=== PATIENT | male | born 1960 | race American Indian/Alaskan Native ===

== ENCOUNTER 2022-12-16 08:10 | Day surgery (SDC) | payer OTHER ==
[2022-12-15 17:42] VITALS: BP 121/75
[~2022-12-16] VITALS: Ht 167.6 cm; Wt 94.8 kg
[~2022-12-16 08:10] MED LIST: NAPROXEN500 MG PO; NORCO 5-325 TA1 EACH PO; NORVASC10 MG PO; TRIAMTERENE-HC1 EAC3 PO; VESICARE10 MG PO; VITAMIN D350 MCG PO
[2022-12-16 08:43] VITALS: BP 107/64
--- NOTE | 2022-12-16 10:47 | NUR ---
12/16/22 Radha7 Corie Khalil 1039 PT ARRIVED TO PACU ASLEEP. SAO2 MAINTAINING >95% ON 3 L O2.
[2022-12-16 11:13] VITALS: BP 108/77
--- NOTE | 2022-12-17 08:32 | OR ---
[facility] [address] [place], [place] [address] Signed DATE OF OPERATION: 12/16/2022 SURGEON: Alin Helm MD PREOPERATIVE DIAGNOSES: 1. Personal history of colonic polyps in 2010 at the age of 50. 2. Moderate right and left-sided diverticulosis. 3. Small internal hemorrhoids. POSTOPERATIVE DIAGNOSES: 1. 5 mm polyp at 70 cm in proximal transverse colon. 2. 4 mm polyp at 85 cm in proximal transverse colon. 3. Moderate right and left-sided diverticulosis. 4. Minimal internal hemorrhoids. PROCEDURE: Colonoscopy with hot biopsy. ESTIMATED BLOOD LOSS: None. INDICATIONS: Dillon is a 62-year-old gentleman, asked to see me for a followup colonoscopy. He said he has no lower GI complaints. There is no family history of colon cancer or polyps. I helped him with a colonoscopy in 2010 at the age of 50. At that time, he had right and left-sided diverticulosis. He had a small 4 mm adenomatous polyp removed. He has some small internal hemorrhoids. In the office, I gave him a pamphlet on colonoscopy. We had reviewed the nature of the test. There is risk including, but not limited to gas bloating, crampy abdominal pain, bleeding, perforation requiring surgery, and missed diagnosis. We also reviewed the need for IV conscious sedation. He had done well with Versed and fentanyl in the past. He had expressed understanding and wished to proceed. PROCEDURE NOTE: Dillon was taken into our endoscopy suite and placed in the left lateral decubitus position. He was given preoperative Ancef due to his left hip replacement. He was given 7 mg of Versed and 125 mcg of fentanyl to cover the case. A digital rectal exam was performed and this revealed no external hemorrhoids. He had moderate sphincter tone. There were no masses. His prostate is swollen and indurated bilaterally. The adult colonoscope was introduced and advanced under direct visualization of the camera. He has a relatively short colon and we got into the cecum fairly quickly. His prep was Electronically Signed By: ALIN HELM MD 12/17/22 0832 PATIENT NAME: DILLON ESCALANTE OPERATIVE REPORT DATE OF : 58 REPORT #: [id number] PHYSICIAN: ALIN HELM MD PCP: TRISTEN BREWER MD REPORT IS CONFIDENTIAL AND NOT TO BE RELEASED WITHOUT AUTHORIZATION [address] [address] Signed quite good as always. We could easily see the appendiceal orifice and the ileocecal valve. We had taken pictures throughout for photodocumentation. The scope was slowly withdrawn. He indeed has moderate-sized diverticula in the right and sigmoid colon. He had a couple of polyps in the transverse colon easily removed with the help of hot biopsy forceps. In the rectum, the scope had been retroflexed and he does have minimal internal hemorrhoid tissue. After this, the gas was suctioned out and the colonoscope removed. Dillon tolerated the procedure quite well. RECOMMENDATIONS: I will see Dillon in my office in 7 to 14 days to review his results. I suspect he will stay on the five year plan. Alin Helm MD ALB/MODL /[id number] cc: Alin Helm MD [facility] Copies: ALIN HELM MD ~ Electronically Signed By: ALIN HELM MD 12/17/22 0832 PATIENT NAME: DILLON ESCALANTE OPERATIVE REPORT DATE OF : 58 REPORT #: [id number] PHYSICIAN: ALIN HELM MD PCP: TRISTEN BREWER MD REPORT IS CONFIDENTIAL AND NOT TO BE RELEASED WITHOUT AUTHORIZATION
--- NOTE | 2022-12-22 15:33 | PATH ---
[facility] [address] [place], [place] [address] Signed SPECIMEN(S): A PROXIMAL TRANSVERSE POLYP AT 70 CM SPECIMEN(S): B TRANSVERSE COLON POLYP SPECIMEN SOURCE: A. PROXIMAL TRANSVERSE POLYP AT 70 CM B. TRANSVERSE COLON POLYP CLINICAL HISTORY: Colonoscopy. Personal history of colon polyps, rossi diverticuli. Post: Polyps, diverticuli, internal hemorrhoids. FINAL PATHOLOGIC DIAGNOSIS: A. Proximal transverse polyp at 70 cm: - Tubular adenoma (one fragment). B. Transverse colon polyp: - Hyperplastic polyp (one fragment). JVR:[facility] MICROSCOPIC EXAMINATION: Histologic sections of all submitted blocks are examined by light microscopy. These findings, together with the gross examination, support the pathologic diagnosis. GROSS DESCRIPTION: A. The specimen, labeled and designated "Kleber, V, colon, transverse proximal polypectomy at 70 cm," is received in formalin and consists of one fabian, soft tissue fragment measuring 0.2 x 0.4 cm and is submitted entirely in (A1). B. The specimen, labeled and designated "Kleber, V, colon, transverse polypectomy," is received in formalin and consists of one fabian, soft tissue fragment measuring 0.2 x 0.3 cm and is submitted entirely in (B1). MMA (under the direct supervision of a pathologist) The Gross Description was prepared using a voice recognition system. The report was reviewed for accuracy; however, sound-alike word errors, addition and/or deletions may occur. If there is any question about this report, please contact Client Services. PERFORMING LABORATORY: Technical component was performed by [facility], [address] [place] [id number] (CLIA# [id number]). PATIENT NAME: DILLON ESCALANTE PATHOLOGY DATE OF : 58 REPORT #: [id number] PHYSICIAN: [facility] PCP: TRISTEN BREWER MD REPORT IS CONFIDENTIAL AND NOT TO BE RELEASED WITHOUT AUTHORIZATION [facility] [address] [place], [place] [address] Signed Professional interpretation was performed by [facility] [address] [address] (CLIA#: [id number]). Diagnostician: Ronald Laboy MD Pathologist Electronically Signed 12/22/2022 Copies: ~ PATIENT NAME: DILLON ESCALANTE PATHOLOGY DATE OF : 58 REPORT #: [id number] PHYSICIAN: [facility] PCP: TRISTEN BREWER MD REPORT IS CONFIDENTIAL AND NOT TO BE RELEASED WITHOUT AUTHORIZATION
== END 2022-12-16 11:30 | disposition home or self-care (01) ==
LOC: DS 08:10 → OPS 08:10 → DS 10:15 → OPS 10:15
PROVIDERS: ATTEND Colon & Rectal Surgery
PROC: 0DBL8ZX Excision of Transverse Colon, Via Natural or Artificial Opening Endoscopic, Diagnostic (ICD-10-PCS; principal; 2022-12-16 10:15)
DX: D12.3 Benign neoplasm of transverse colon (principal); K57.30 Diverticulosis of large intestine without perforation or abscess without bleeding; K64.8 Other hemorrhoids; M19.90 Unspecified osteoarthritis, unspecified site; I10 Essential (primary) hypertension; Z86.010 Personal history of colon polyps
CPT/HCPCS: 88305; 99153; G0500; J0690; J2250; J3010; J7121

== ENCOUNTER 2024-06-13 14:49 | Observation (INO) | payer OTHER ==
[~2024-06-13] VITALS: Ht 167.6 cm; Wt 97.4 kg
--- NOTE | ~2024-06-13 | CONS ---
[facility] [address] [place], [place] [address] Draft DATE OF CONSULTATION: 06/13/2024 CHIEF COMPLAINT: Abdominal pain. HISTORY OF PRESENT ILLNESS: Dillon is a 63-year-old obese gentleman who for at least a couple of days actually was complaining of upper abdominal pain, anorexia, nausea, and an elevated heart rate. He had gone to his primary care provider. He was sent to the local emergency room mainly for his tachycardia apparently. On exam, there was some concern about upper abdominal pain, but tonight he says a small right lower quadrant abdominal pain. The CT scan showed an inflamed thickened appendix at 13 mm with periappendiceal inflammation. He was given Rocephin and Flagyl. I was asked to admit him as a general surgeon on-call. He is here tonight with his . PAST MEDICAL HISTORY: 1. Hypertension. 2. Obesity. PAST SURGICAL HISTORY: 1. Bilateral total hip replacements. 2. Colonoscopy. SOCIAL HISTORY: He smokes a little along with marijuana and occasional alcohol. 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 His significant other is Chantell at [phone]. Dr. Tristen Brewer is his primary care provider at the [facility]. FAMILY HISTORY: A sister had an NM and his other sister drank herself to . REVIEW OF SYSTEMS: He had 10 systems reviewed and he did remind me that I helped him with a colonoscopy in the past. Of course, I recognized him and his . ALLERGIES: None. MEDICATIONS: 1. Vitamin D. 2. Amlodipine 10 mg p.o. daily. 3. Triamterene/hydrochlorothiazide (37.5/25 mg one p.o. daily). PATIENT NAME: DILLON ESCALANTE CONSULTATION DATE OF : 58 REPORT #: [id number] PHYSICIAN: ALIN CHOI MD PCP: TRISTEN BREWER MD REPORT IS CONFIDENTIAL AND NOT TO BE RELEASED WITHOUT AUTHORIZATION [facility] [address] [place], [place] [address] Draft PHYSICAL EXAMINATION: VITAL SIGNS: Blood pressure 113/84, his heart rate is 98, respiratory rate 19, temperature is 98.6. He is 99% on room air. He is 5 feet 6 inches tall at 97 kg with a body mass index of 34 exam. GENERAL: Dillon is a 63-year-old gentleman, lying supine in his hospital bed, watching TV. His is at the bedside along with our nurse. He is in no acute distress. LUNGS: Clear to auscultation bilaterally. HEART: Regular rate and rhythm without murmurs. ABDOMEN: Obese, soft, but tender in the right lower quadrant. LABORATORY DATA: White blood count 17.5, hemoglobin 15, neutrophils 85. Electrolytes unremarkable. BUN 1.13. Urinalysis negative. Total bilirubin slightly up at 1.3 AST normal at 12, ALT 25, alkaline phosphatase 70, albumin 3.5. EKG is pending. RADIOGRAPHIC STUDIES: CT scan and pelvis is reviewed along with the images and he does have a thickened appendix about 13 mm with some periappendiceal inflammation. ASSESSMENT AND PLAN: Dillon is a 63-year-old obese gentleman, who presents with appendicitis. I brought Dillon a booklet on the appendix. We went through it page by page. We looked at the location and function of the appendix. We discussed laparoscopic versus open appendectomy. He understands there is risk including, but not limited to bleeding, infection, scarring, change in contour of the skin, damage to bowel, appendiceal stump leak, postoperative intra-abdominal abscess, incisional hernias and other unforeseen comorbidities. We also discussed the expected intraop and postop course. He has a 3% chance of having a laparoscopic converted to an open appendectomy. We will get him admitted tonight, hydrated and continue his antibiotics. Dr. Ragland will be taking over in the morning for his surgery. Alin Choi MD [facility] /[id number] cc: Alin Choi MD PATIENT NAME: DILLON ESCALANTE CONSULTATION DATE OF : 58 REPORT #: [id number] PHYSICIAN: ALIN CHOI MD PCP: TRISTEN BREWER MD REPORT IS CONFIDENTIAL AND NOT TO BE RELEASED WITHOUT AUTHORIZATION [facility] [address] [place], [place] [address] Draft Tristen Brewer MD Copies: ALIN CHOI MD, JAMES MD ~ PATIENT NAME: DILLON ESCALANTE CONSULTATION DATE OF : 58 REPORT #: [id number] PHYSICIAN: ALIN CHOI MD PCP: TRISTEN BREWER MD REPORT IS CONFIDENTIAL AND NOT TO BE RELEASED WITHOUT AUTHORIZATION
[~2024-06-13 14:49] MED LIST changes: +TRIAMTERENE-HC1 EAC1 PO; -TRIAMTERENE-HC1 EAC3 PO; +VITAMIN D350 MC3 PO; -VITAMIN D350 MCG PO
[2024-06-13] MEDS ORDERED: SEVOFLURANE 250 ML BTL INH ONE (15:00)
[2024-06-13] MEDS ORDERED: ondansetron HCL 4 MG/2 ML VIAL IV ONE (16:30)
[2024-06-13 16:51] LABS: BASOPHILS 0.2 % (0-2); HEMATOCRIT 45.4 % (35.0-50.0); HEMOGLOBIN 15.6 g/dL (12.0-18.0); MCH 29.1 (27-36); MCHC 34.4 g/dl (30-36); MCV 84.3 fl (81-99); MONOCYTES 8.9 % (0-12); NEUTROPHILS 85.9 % (39-80); PLATELET COUNT 152 K/uL (140-440); RBC 5.39 M/ul (4.3-5.7); RDW 15.4 (10.5-15.0)
[2024-06-13] MEDS ORDERED: HYDROmorphone HCL 1 MG/ML SYR IV ONE (17:00)
[2024-06-13] MEDS ORDERED: SODIUM CHLORIDE 0.9% 1,000 ML IV ONE (17:00)
[2024-06-13 17:43] LABS: ALBUMIN 3.5 g/dL (3.4-5.0); ALBUMIN/GLOBULIN RATIO 0.88 (1.1-2.4); ANION GAP 12.8 (7-21); BILIRUBIN, TOTAL 1.3 mg/dL (0.2-1.0); BUN/CREATININE RATIO 20.35 (6.0-28.6); CALCIUM 8.8 mg/dL (8.5-10.1); CREATININE, SERUM 1.13 mg/dL (0.70-1.30); POTASSIUM 3.8 mmol/L (3.5-5.1); PROTEIN, TOTAL 7.5 g/dL (6.4-8.2)
[2024-06-13] MEDS ORDERED: metroNIDAZOLE/SODIUM CHLORIDE 500 MG/100 ML PIGGYBACK IV ONE (18:00)
[2024-06-13] MEDS ORDERED: CEFTRIAXONE SODIUM 2 GM in SODIUM CHLORIDE 0.9% 100 ML IV ONE (18:00)
[2024-06-13 18:45] LABS: BILIRUBIN, URINE NEGATIVE (negative); BLOOD/HGB, URINE NEGATIVE (Negative); KETONE, URINE NEGATIVE (Negative); LEUK ESTERASE, URINE NEGATIVE (negative); NITRITE, URINE NEGATIVE (negative); PH, URINE 5.5 (5-7)
[2024-06-13] MEDS ORDERED: LACTATED RINGER'S 1,000 ML IV SCH (19:00)
[2024-06-13] MEDS ORDERED: HYDROmorphone HCL 1 MG/ML SYR IV PRN ×2 (19:00→20:30)
[2024-06-13] MEDS ORDERED: ondansetron HCL 4 MG/2 ML VIAL IV PRN ×2 (19:00→20:30)
[2024-06-13 19:42] VITALS: BP 113/84
[2024-06-13 19:44] VITALS: BP 113/84
--- NOTE | 2024-06-13 19:44 | NUR ---
PT ARRIVAL TO ROOM 123 FROM ED. VITALS, INITIAL ASSESSMENT. RON AT BEDSIDE. IV FLAGYL AND FLUIDS RUNNING.
--- NOTE | 2024-06-13 20:15 | NUR ---
RUE IV INFILTRATED. REMOVED IV, ELEVATED AND APPLIED ICE. LR AND FLAGYL WERE INFUSING.
[2024-06-13] MEDS ORDERED: ACETAMINOPHEN 325 MG TAB PO PRN (20:30)
[2024-06-13] MEDS ORDERED: PANTOPRAZOLE SODIUM 40 MG/10 ML VIAL IV SCH (20:30)
[2024-06-13] MEDS ORDERED: PROCHLORPERAZINE EDISYLATE 10 MG/2 ML VIAL IV PRN (20:30)
[2024-06-13] MEDS ORDERED: DEXTROSE 5% - LACTATED RINGERS 1,000 ML IV SCH (20:30)
[2024-06-13] MEDS ORDERED: ACETAMINOPHEN 650 MG SUPP PR PRN (20:30)
[2024-06-13] MEDS ORDERED: CEFEPIME HCL 2 GM in SODIUM CHLORIDE 0.9% 100 ML IV SCH (21:00)
[2024-06-13] MEDS ORDERED: CEFEPIME HCL 1 GM in SODIUM CHLORIDE 0.9% 100 ML IV ONE (21:00)
[2024-06-13] MEDS ORDERED: ENOXAPARIN SODIUM 40 MG/0.4 ML SYR SUB-Q SCH (21:00)
--- NOTE | 2024-06-13 22:30 | NUR ---
ASSESSMENT, EVENING MEDS. RON AT BEDSIDE, MADE BED FOR OVERNIGHT STAY. GIVEN PRN DILAUDID FOR ABD PAIN. NO OTHER NEEDS, CALL LIGHT IN REACH
[2024-06-14] VITALS (16 sets, daily range): BP systolic 94–127; BP diastolic 60–77
--- NOTE | 2024-06-14 00:46 | NUR ---
PT RESTING IN BED, NO NEEDS AT THIS TIME. [facility]
[2024-06-14] MEDS ORDERED: CEFEPIME HCL 1 GM in SODIUM CHLORIDE 0.9% 100 ML IV SCH (02:00)
--- NOTE | 2024-06-14 02:10 | NUR ---
VITALS. IV ABX TO BE RETIMED D/T PREVIOUS ADMINISTRATION AT 2230. NO NEEDS, CALL LIGHT IN REACH
[2024-06-14] MEDS ORDERED: CEFEPIME HCL 1 GM VIAL ONE (03:02)
--- NOTE | 2024-06-14 03:16 | NUR ---
HUNG IV ABX, DEFFERED 1 HOUR D/T PREVIOUS ADMIN TIME AT 2200. PT ALERT IN BED, ASKS FOR MOUTH SWABS, GIVEN. NO OTHER NEEDS, CALL LIGHT IN REACH
--- NOTE | 2024-06-14 04:54 | NUR ---
ASSISTED TO BATHROOM. GIVEN IV DILAUDID 1MG PER REQUEST. PT NOTES HE BEGINS HAVING HICCUPS AFTER DILAUDID DOSE, VALIDATED THAT THIS CAN BE A BENIGN SIDE EFFECT OF OPIOIDS. OFFERED ICE PACK FOR STOMACH. NO OTHER NEEDS, CALL LIGHT IN REACH
[2024-06-14 06:03] LABS: BASOPHILS 0.3 % (0-2); EOSINOPHILS 0.3 % (0-6); HEMATOCRIT 38.8 % (35.0-50.0); HEMOGLOBIN 13.3 g/dL (12.0-18.0); LYMPHOCYTES 8.7 % (24-44); MCH 29.2 (27-36); MCHC 34.3 g/dl (30-36); MONOCYTES 8.4 % (0-12); NEUTROPHILS 82.3 % (39-80); PLATELET COUNT 142 K/uL (140-440); RBC 4.56 M/ul (4.3-5.7); RDW 15.2 (10.5-15.0)
[2024-06-14 06:20] LABS: ANION GAP 13.8 (7-21); CALCIUM 8.4 mg/dL (8.5-10.1); MAGNESIUM 1.6 mg/dL (1.8-2.4); PHOSPHORUS, INORGANIC 2.3 mg/dL (2.5-4.9); POTASSIUM 3.8 mmol/L (3.5-5.1)
--- NOTE | 2024-06-14 06:33 | NUR ---
ADMITTED FOR APPENDICITIS FROM ED. IV ABX AND PAIN CONTROL OVERNIGHT. GIVEN DILAUDID 1MG X2. RUE IV INFILTRATED, SMALL BRUISE ON UPPER ARM. ARM ELEVATED AND ICE APPLIED OVERNIGHT PLAN FOR APPENDECTOMY TODAY N: A&OX4 CV: WNL R: LUNGS CLEAR ON ROOM AIR GI: NPO AFTER MIDNIGHT. TOLERATED CLEAR LIQUIDS PRIOR. SOME MILD NAUSEA AND TENDERNESS : VOIDS TO URINAL AND BATHROOM MS: HAS OWN FWW IN ROOM FOR LONG DISTANCE. SBA FOR SHORT DISTANCE ACCESS: R HAND IV RUNNING LRD5 @125ML/HR
--- NOTE | 2024-06-14 07:14 | NUR ---
MORNING REPORT RECIEVED FROM BUTCH MESSINA. PT IS TO HAVE APENDIX REMOVED SOMETIME TODAY. PT CONTINUED TO HAVE ACUTE PAIN DURING THE NIGHT BUT WAS MANAGED WELL WITH DILAUDID. PT CURRENTLY LAYING IN BED WITH EYES CLOSED CHEST RISE EQUAL BILAT. PT CALL LIGHT IN REACH.
--- NOTE | 2024-06-14 07:40 | NUR ---
Spoke with pt. He lives in a duplex in [facility]. He lives with his , he states she has COPD. He asks if I can get her a shower chair and I asked him to contact his PCP. He does not use DME, he is active and drives. He denies any needs. He wants to know when his surgery is scheduled and I told it will most likely be an add on after the scheduled surgeries. Pt plans on dc to home when he is cleared medically to dc to home.
[2024-06-14] MEDS ORDERED: MAGNESIUM SULFATE 20 GM/500 ML BAG IV ONE (08:00)
--- NOTE | 2024-06-14 08:02 | NUR ---
PT AMBULATED TO RESTROOM SBA, PT STATES HE HAS BLADDER SPASMS CHRONIC, AND WAS UNABLE TO MAKE IT TO THE RESTROOM. PT THEN RETURNED TO BED WITH NO CURRENT CONCERNS AT THIS TIME CALL LIGHT IN REACH.
--- NOTE | 2024-06-14 08:11 | NUR ---
PATIENT IN BED AT THIS TIME. VIDEOTAPE EDITOR CHARTED HOURLY ROUNDS. CALL LIGHT WITHIN REACH, NO FURTHER NEEDS AT THIS TIME.
[2024-06-14] MEDS ORDERED: MAGNESIUM SULFATE 2 GM/50 ML BAG IV ONE (09:00)
[2024-06-14] MEDS ORDERED: metroNIDAZOLE/SODIUM CHLORIDE 500 MG/100 ML PIGGYBACK IV SCH (09:00)
--- NOTE | 2024-06-14 09:04 | NUR ---
UR CLINICAL REVIEW: [facility] [place], MEETS FOR APPENDECTOMY WITHOUT ABSCESS OR PERITONITIS SURGICAL INTERVENTION TO BE DONE 06/14/24, TODAY BASIC DMAP (MEDICAID) OBS 06/13/2024 @ 1853 ORDER MATCHES REG DC TO HOME POST OP WHEN CRITERIA MET 06/15/2024
[2024-06-14] MEDS ORDERED: ZESTRIL30 MG PO (09:07)
--- NOTE | 2024-06-14 09:35 | NUR ---
MED REC COMPLETE
--- NOTE | 2024-06-14 09:40 | NUR ---
PATIENT IN BED WATCHING TV, VISITOR IN ROOM. VITALS AND I&O'S DONE AND CHARTED. CALL LIGHT IN REACH. NO FURTHER NEEDS AT THIS TIME.
--- NOTE | 2024-06-14 11:00 | NUR ---
PT IV IN RIGHT HAND IS NO PATENT, TRISTON KIM WAS CONTACTED TO PLACE US IV. PT HAS NO COMPLAINTS AT THIS TIME, AND HAS CALL LIGHT IN REACH.
--- NOTE | 2024-06-14 11:36 | NUR ---
PT CURRENTLY SITTING UP IN BED, PT HAS NO CURRENT CONCERNS AT THIS TIME. PT HAS CALL LIGHT IN REACH AT THIS TIME AND HAS AMBULATED MULTIPLE TIMES TO THE RESTROOM. PT IS ALSO CURRENTLY IN ROOM AT THIS TIME.
--- NOTE | 2024-06-14 12:12 | NUR ---
PT CURRENTLY IN BED WITH AT PT BEDSIDE. PT HAS NO CURRENT CONCERNS AT THIS TIME, PT HAS CALL LIGHT IN REACH.
--- NOTE | 2024-06-14 13:10 | NUR ---
PT US GUIDED IV STARTED BY BUTCH QUINONES. PT TW PT CURERNTLY EXPEREINCING ABD PAIN IN RLQ 5-10 PT RECIEVED PRN DILAUDID (SEE EMAR). PT HAS NO OTHER CONCERNS AT THIS TIME. PT HAS CALL LIGHT IN REACH AND AT BEDSIDE.
--- NOTE | 2024-06-14 13:34 | NUR ---
PT NOT AVAILABLE FOR VISIT. PROVIDED PRAYER.
--- NOTE | 2024-06-14 14:02 | NUR ---
PT CURRENTLY SITTING UP IN BED, PT HAS NO PAIN AT THIS TIME. PT CURRENTLY HAS CALL LIGHT IN REACH WITH NO CURRENT NEEDS AT THIS TIME
--- NOTE | 2024-06-14 14:59 | NUR ---
PT SITTING UP IN BED, PT HAS NO CURRENT NEEDS AT THIS TIME. PT HAS CALL LIGHT IN REACH.
--- NOTE | 2024-06-14 15:32 | NUR ---
PT LEFT FOR SURGERY WITH BACKHAUL DRIVER, PT TO RETURN TO SAME ROOM. PT HAS NO QUESTIONS UPON LEAVING FOR SURGERY.
[2024-06-14] MEDS ORDERED: ACETAMINOPHEN 1,000 MG/100 ML VIAL ONE (15:44)
[2024-06-14] MEDS ORDERED: DEXAMETHASONE SOD PHOS 4 MG/ML VIAL ONE (15:44)
[2024-06-14] MEDS ORDERED: SUGAMMADEX SODIUM 200 MG/2 ML ML ONE (15:44)
[2024-06-14] MEDS ORDERED: ondansetron HCL 4 MG/2 ML VIAL ONE (15:44)
[2024-06-14] MEDS ORDERED: MIDAZOLAM HCL 2 MG/2 ML VIAL ONE (15:44)
[2024-06-14] MEDS ORDERED: ROCURONIUM BROMIDE 50 MG/5 ML SYR ONE ×2 (15:44→16:56)
[2024-06-14] MEDS ORDERED: fentaNYL citrate 100 MCG/2 ML VIAL ONE ×2 (15:44→16:58)
[2024-06-14] MEDS ORDERED: propofoL 200 MG/20 ML VIAL ONE (15:44)
[2024-06-14] MEDS ORDERED: LIDOCAINE HCL 2% 20 MG/ML VIAL INJ ONE (15:44)
[2024-06-14] MEDS ORDERED: LIDOCAINE HCL 2% 5 ML SDV ONE (15:44)
[2024-06-14] MEDS ORDERED: KETOROLAC TROMETHAMINE 30 MG/ML VIAL ONE (15:44)
[2024-06-14] MEDS ORDERED: SUCCINYLCHOLINE IN 0.9% NACL 200 MG/10 ML SYRINGE ONE (15:44)
[2024-06-14] MEDS ORDERED: LACTATED RINGER'S 1,000 ML IV ONE (16:58)
[2024-06-14] MEDS ORDERED: ondansetron HCL 4 MG/2 ML VIAL IV PRN ×2 (17:15→19:00)
[2024-06-14] MEDS ORDERED: NALOXONE HCL 0.4 MG SYR IV PRN ×2 (17:15→19:00)
[2024-06-14] MEDS ORDERED: HYDROmorphone HCL 1 MG/ML SYR IV PRN ×2 (17:15→19:00)
[2024-06-14] MEDS ORDERED: IBLOOD GLUCOSE TEST STRIP 1 EA TEST VI PRN (17:15)
[2024-06-14] MEDS ORDERED: fentaNYL citrate 50 MCG/ML SDV IV PRN (17:15)
[2024-06-14] MEDS ORDERED: droPERidol 5 MG/2 ML VIAL IV PRN (17:15)
[2024-06-14] MEDS ORDERED: PROCHLORPERAZINE EDISYLATE 10 MG/2 ML VIAL IV PRN (17:15)
[2024-06-14] MEDS ORDERED: HYDROmorphone HCL 4 MG TAB PO PRN (19:00)
--- NOTE | 2024-06-14 19:10 | NUR ---
REPORT RECEIVED FROM BUTCH RUCKER. PATIENT REMAINS OFF THE FLOOR AT THIS TIME.
--- NOTE | 2024-06-14 19:10 | NUR ---
06/14/241909 Lorie Fallon 184- PT ARRIVES TO PACU WITH A NATURAL AIRWAY AND A CHIN LIFT DONE BY MAYANK LERMA. PT IS NONREACTIVE TO VERBAL AND TACTILE STIMULI. BREATHING IS EVEN AND UNLABORED WITH THE CHIN LIFT, ALTHOUGH THERE IS AUDIBLE MOANING WITH THE EXHALE. NO FACIAL GRIMACING IS NOTED AND NO OTHER SIGNS OF APPARENT DISTRESS. LR INFUSING IN THE IV. SURGICAL SITES ARE CDI. BUTCH MONDRAGON TAKES OVER DOING THE JAW THRUST FROM MAYANK LREMA. ALL MONITORS PUT IN PLACE AND VSS. PT HAS 6L OF O2 VIA MASK. 1850-CHIN LIFT NO LONGER NEEDED. PT BEGINS TO SWALLOW OFF AND ON. PT MOVES HEAD SLIGHTLY WITH STIMULATION. ORAL AIRWAY REMOVED WHEN PT IS ABLE TO FOLLOW DIRECTIONS TO DEEP BREATHE. MASK PUT IN PLACE ON 6L OF O2. PT LIFTING ARMS IN THE AIR OFF AND ON BUT NOT ANSWERING QUESTIONS.
[2024-06-14] MEDS ORDERED: AMLODIPINE BESYLATE 10 MG TAB PO SCH (19:17)
[2024-06-14] MEDS ORDERED: lisinopriL 10 MG TAB PO SCH (19:18)
--- NOTE | 2024-06-14 19:45 | NUR ---
PATIENT IN ROOM FROM SURGERY. REPORT RECEIVED FROM BUTCH DOWNEY AND BUTCH MONDRAGON. PATIENT RESTING IN BED AND REPORTS 6/10 PAIN. PATIENT IS STABLE AFTER SURGERY WITH CPOX AT BEDSIDE. IV FLUIDS RUNNING WIDE OPEN, CLAMPED AT THIS TIME, IV FLUSHED WITH 10ML OF NS, IV FLUIDS ADDED TO PUMP FOR ORDER OF 125MLS/HR. PATIENT REQUESTING PAIN MEDICATION. PATIENT WITHOUT FURTHER NEEDS AT THIS TIME. CALL LIGHT AND PERSONAL BELONGINGS ARE WITHIN REACH. VS STABLE.
--- NOTE | 2024-06-14 20:05 | NUR ---
PATIENT MEDICATION PER EMAR. PATIENT ASSESSMENT COMPLETED. PATIENT IS ALERT AND ORIENTED X4. PATIENT REPORTS 6/10 PAIN. PO DILAUDID GIVEN AT THIS TIME. PATIENT LAP SITES ARE CLEAN, DRY, AND INTACT. PATIENT CARDIAC IS WITH NORMAL S1-S2 NOTED. PATIENT IS ON ROOM AIR WITH CLEAR LUNG SOUNDS THROUGHOUT. PATIENT DENIES ANY NUMBNESS OR TINGLING IN BILATERAL UPPER AND LOWER EXTREMETIES. PATIENT IS WITHOUT EDEMA, PULSES ARE STRONG IN BILATERAL UPPER AND LOWER EXTREMETIES. SCD'S IN PLACE AND TURNED ON. IV INFUSING ABX AT 25ML/HR SECONDARY AND D5LR AT 125ML/HR. PATIENT PROVIDED JELLO AND SALTINE CRACKERS FOR A REGULAR DIET WITH ADVANCING TOLERATED. PATIENT BOWEL TONES ARE HYPOACTIVE IN ALL 4 QUADRANTS. PATIENT DENIES ANY NAUSEA OR VOMITING AT THIS TIME. PATIENT WITHOUT FURTHER NEEDS. CALL LIGHT AND PERSONAL BELONGINGS ARE WTIHIN REACH.
--- NOTE | 2024-06-14 20:45 | NUR ---
IN ROOM FOR HOURLY POST-OP VITALS. VITALS ARE STABLE. PATIENT TOLERATING DIET WELL AND DENIES ANY NAUSEA OR VOMITING. PATIENT WITHOUT FURTHER NEEDS AT THIS TIME. CALL LIGHT AND PERSONAL BELONINGS ARE WITHIN REACH.
--- NOTE | 2024-06-14 21:17 | NUR ---
CALL LIGHT ANSWERED. PATIENT ASKING FOR A NEW GOWN. PROVIDED. EMPTIED URINAL WITH SCANT URINE IN IT. NO OTHER NEEDS AT THIS TIME.
--- NOTE | 2024-06-14 21:45 | NUR ---
IN ROOM FOR POST OP VITALS. PATIENT REPORTS PAIN IS DOWN TO A 4/10, BUT IS STILL PAINFUL. PATIENT TOLERATING DIET WELL AND IS WITHOUT NAUSEA. VOMITING AT THIS TIME. IV INFUSING. PATIENT WITHOUT FURTHER NEEDS AT THIS TIME. CALL LIGHT AND PERSONAL BELONGINGS ARE WITHIN REACH. VS STABLE.
--- NOTE | 2024-06-14 22:29 | NUR ---
PATIENT UP TO USE THE URINAL. PATIENT WALKED AROUND THE NURSE'S STATION X2. CHANGED BED LINEN. PATIENT PROVIDED WITH SNACKS. PATIENT IS BACK IN BED. ICE WATER REFILLED.
--- NOTE | 2024-06-14 22:55 | NUR ---
IN ROOM FOR PATIENT POST-OP VITALS. PATIENT RESTING IN BED WATCHING TV. APPLE JUICE AND CHEESE STICK PROVIDED. PATIENT WITHOUT FURTHER NEEDS AT THIS TIME. CALL LIGHT AND PERSONAL BELONGINGS ARE WITHIN REACH. VITAL SIGNS ARE STABLE.
--- NOTE | 2024-06-14 23:45 | NUR ---
IN ROOM FOR PATIENT POST-OP VITALS. PATIENT REPORTING 6/10 PAIN TO ABDOMEN, BUT MOSTLY TO LEFT LOWER LAP SITE. THIS RN ASSESSED PATIENT LAP SITES X3; ALL 3 ARE CLEAN, DRY, AND INTACT WITH NO DRAINAGE NOTED. PATIENT GIVEN PAIN MEDICATION PER EMAR. PATIENT VITAL SIGNS ARE STABLE. PATIENT WITHOUT FURTHER NEEDS AT THIS TIME. IV INFUSING ABX. CALL LIGHT AND PERSONAL BELONGINGS ARE WITHIN REACH.
[2024-06-15] VITALS (8 sets, daily range): BP systolic 96–106; BP diastolic 59–64
--- NOTE | 2024-06-15 00:34 | NUR ---
IV ABX COMPLETED. D5LR CONTINUOUSLY INFUSING AT 125ML/HR. PATIENT WITHOUT ANY NEEDS AT THIS TIME. CALL LIGHT AND PERSONAL BELONGINGS ARE WITHIN REACH. CPOX AT BEDSIDE.
--- NOTE | 2024-06-15 02:20 | NUR ---
IN ROOM TO START PATIENT NEXT DOSE OF ABX, CHECK PATIENT VITAL SIGNS, AND MORNING ASSESSMENT. PATIENT WAS RESTING WITH EYES CLOSED WITH EVEN AND UNLABORED RESPIRATIONS WHEN THIS RN ENTERED ROOM. VITAL SIGNS TAKEN AND BP WAS LOW (FIRST TWO DIDN'T SAVE ON MONITOR) 3RD BP WAS 88/48 WITH A MAP OF 58. PATIENT IS ALERT AND ORIENTED WITHOUT COMPLAINTS OF LIGHTHEADEDNESS/DIZZINESS. PATIENT LAP SITES WERE ASSESSED AND WERE CLEAN, DRY, AND INTACT. PATIENT REQUESTING TO GET UP TO USE THE BATHROOM. THIS RN AT PATIENT SIDE FOR TRANSFER. PATIENT SAT AT EDGE OF BED BEFORE AMBULATING TO BATHROOM. PATIENT DENIED DIZZINESS WITH SITTING UP. PATIENT AMBULATED TO BATHROOM AND BACK IN BED WITHOUT COMPLAINTS OF FEELING LIGHTHEADED/DIZZY. PATIENT BP RECHECKED AT THIS TIME WITH RESULTS OF 98/63 AND A MAP OF 72. LAP SITE RECHECKED AFTER PATIENT ACTIVITY AND LAP SITE DRESSING ARE STILL CLEAN, DRY, AND INTACT. ABDOMEN IS SOFT WITH SOME BLOATING STILL FROM SURGERY; BOWEL TONES ARE ACTIVE IN ALL 4 QUADRANTS. IV FLUSHED WITH 10ML OF NS, DRESSING IS CLEAN, DRY, AND INTACT. IV ABX STARTED AND INFUSING AT 25ML/HR. PATIENT ALSO STATES HIS PAIN IS DOWN TO A 3/10 WITH ACTIVITY AND STATES "IT'S OKAY WHEN I'M LAYING DOWN NOT MOVING". PATIENT WITHOUT FURTHER NEEDS AT THIS TIME. CALL LIGHT AND PERSONAL BELONGINGS ARE WITHIN REACH.
--- NOTE | 2024-06-15 04:03 | NUR ---
PATIENT CALLED DUE TO HIS REMOTE DROPPING AND NOT ABLE TO PICK IT UP. THIS RN IN ROOM TO ASSISST PATIENT. PATIENT REQUESTING TO USE BATHROOM AT THIS TIME. PATIENT UP TO EDGE OF BED BEFORE AMBULATING TO BATHROOM. PATIENT DENIES ANY LIGHTHEADEDNESS/DIZZINESS WITH SITTING UP OR WITH AMBULATION TO BATHROOM. THIS RN AT PATIENT SIDE FOR TRANSFERS. PATIENT REPORTED 5/10 PAIN WITH GETTING UP AND STATES "IT'S CONTINUING TO INCREASE AGAIN". PATIENT MEDICATED PER EMAR. PATIENT BP CHECKED WHEN PATIENT GOT BACK IN BED. BP WAS 99/62 WITH A MAP OF 71 AT THIS TIME. LAP SITES X3 CONTINUE TO BE CLEAN, DRY, AND INTACT. FRESH ICE WATER PROVIDED. PATIENT WITHOUT FURTHER NEEDS AT THIS TIME. CALL LIGHT AND PERSONAL BELONGINGS ARE WITHIN REACH. VS STABLE.
--- NOTE | 2024-06-15 05:05 | NUR ---
PATIENT REQUESTING TO GO FOR A WALK AT THIS TIME. THIS RN AT PATIENT SIDE WHILE HE IS AMBULATING IN THE HALL, ROMI VENCES WALKING WITH WHEELCHAIR BEHIND FOR SAFETY IF PATIENT FEELS WEAK OR DIZZY.
--- NOTE | 2024-06-15 06:03 | NUR ---
PATIENT SITTING UP IN BED WATCHING TV. PATIENT DENIES ANY NEEDS AT THIS TIME. CALL LIGHT AND PERSONAL BELONGINGS ARE WITHIN REACH. CPOX AT BEDSIDE.
--- NOTE | 2024-06-15 06:53 | NUR ---
DR SAINI CALLED AT THIS TIME DUE TO THIS RN STARTING PATIENT IV ABX LATE. THIS RN NOTIFIED DR SAINI THAT THE IV ABX WAS STARTED 3 HOURS LATE AND THAT TELEPHARMACY WAS NOTIFIED AND FUTURE ABX HAVE BEEN RE-TIMED. STATES "OKAY, NO PROBLEM". WITH NO FURTHER ORDERS AT THIS TIME. CALL ENDED.
--- NOTE | 2024-06-15 07:30 | NUR ---
RECEIVED REPORT FROM NIGHT RN. PT RESTING IN BED THIS MORNING, DENIES ANY NEEDS. IV ABX INFUSING WITH IV FLUIDS. PT DENIES ANY NEEDS AT THIS TIME, ALLOWED TO REST. CALL LIGHT WITHIN REACH.
--- NOTE | 2024-06-15 07:56 | NUR ---
PATIENT IN BED AT THIS TIME. FERRYBOAT OPERATOR CABLE CHARTED HOURLY ROUNDS ON PATIENT. CALL LIGHT WITHIN REACH, NO FURTHER NEEDS AT THIS TIME.
--- NOTE | 2024-06-15 09:21 | NUR ---
PT RESTING IN BED, IV ABX STARTED. BP SOFT THIS MORNING, HOLDING HIM MORNING BP MEDS AND WILL NOTIFY SURGEON WHEN HE ARRIVES TO FLOOR. DENIES PAIN THIS MORNING, PAIN IMPROVED TO 3/10 WITH PAIN MEDS THIS MORNING. REQUESTING A NOTE FOR WORK WHEN MD ROUNDS THIS AFTERNOON. DENIES ANY OTHER NEEDS AT THIS TIME, CALL LIGHT WITHIN REACH. WILL CONTINUE TO MONITOR.
--- NOTE | 2024-06-15 09:51 | NUR ---
PT IV ABX CHANGED OVER. RESTING IN BED, DENIES ANY NEEDS AT THIS TIME. WILL CONTINUE TO MONITOR. CALL LIGHT WITHIN REACH.
--- NOTE | 2024-06-15 10:05 | NUR ---
Spoke with Good, he denies needs. Plans on dc to home this afternoon. His will pick him up. He states concern for her to walk in as she has COPD. I let him know to have her notify the customer servicer desk and they will bring her in a wc to his room. No other needs.
--- NOTE | 2024-06-15 10:51 | NUR ---
PATIENT IN BED AT THIS TIME. RETIREMENT ASSISTANT ASSISTED PATIENT TO BATHROOM AND THEN BACK TO BED. CALL LIGHT WITHIN REACH, NO FURTHER NEEDS AT THIS TIME.
--- NOTE | 2024-06-15 10:55 | EKG ---
[facility] [address] [facility] [place], [place] [address] Signed Normal sinus rhythm Left axis deviation Low voltage QRS Incomplete right bundle branch block Inferior infarct , age undetermined Abnormal ECG No previous ECGs available Confirmed by Rosita Arzola DO ([id number]) on 06/15/2024 10:55:47 AM Electronically Signed By: ROSITA ARZOLA DO 06/15/24 1055 PATIENT NAME: DILLON ESCALANTE WGENDOLYN Electrocardiogram DATE OF : 58 PHYSICIAN: ROSITA ARZOLA DO REPORT #: [id number] REPORT IS CONFIDENTIAL AND NOT TO BE RELEASED WITHOUT AUTHORIZATION
[2024-06-15] MEDS ORDERED: CEFEPIME HCL 1 GM in SODIUM CHLORIDE 0.9% 100 ML IV SCH (11:00)
--- NOTE | 2024-06-15 11:09 | NUR ---
PATIENT IN BED AT THIS TIME. [employer] AND PATIENT WALKED 2 LAPS AROUND HALLS. CALL LIGHT WITHIN REACH, NO FURTHER NEEDS AT THIS TIME.
--- NOTE | 2024-06-15 12:34 | NUR ---
PT RESTING IN BED AT THIS TIME, LUNCH DELIVERED. PT DENIES ANY NEEDS AT THIS TIME. ALL PT CARE NEEDS MET, WILL CONTINUE TO MONITOR.
[2024-06-15] MEDS ORDERED: PERCOCET 5-3251 EACH PO (12:51)
[2024-06-15] MEDS ORDERED: AMOX TR-K CLV1 EAC1 PO (12:59)
--- NOTE | 2024-06-16 11:19 | OR ---
[facility] [address] [place], [place] [address] Signed DATE OF OPERATION: 06/13/2024 SURGEON: Ajit Ragland MD PREOPERATIVE DIAGNOSIS: Acute appendicitis. POSTOPERATIVE DIAGNOSIS: Acute appendicitis. PROCEDURE: Laparoscopic ANESTHESIA: General endotracheal anesthesia. INDICATIONS: This is a 63-year-old male who was admitted yesterday by Dr. Helm with complaints of upper and lower abdominal pain. He underwent a CT scan of the abdomen. He was found to have an inflammatory process in the right lower quadrant. He had been seen in a local emergency room elsewhere the day before, and the symptoms did not go away. He presents now for urgent appendectomy. PROCEDURE IN DETAIL: After obtaining informed consent, the patient was taken to the operating room where he was placed in a supine position. The abdomen was then prepped and draped in a standard sterile fashion with Betadine, where I had entered the abdomen through a small infraumbilical incision. A Michelle trocar was then inserted and secured adequately. Adequate amount of abdominal insufflation was achieved and at that point, I visualized the abdomen. He had a significant inflammatory process in the right lower quadrant involving several loops of terminal ileum. I went ahead, I placed another 12 mm trocar on the left lower quadrant and a 5 mm trocar in the suprapubic area. It took a while to dissect these out and figure out what it was. The appendix was encased in the mesoappendix and as well as in the inflammatory process. I dissected off this area as clean, as dry as possible using sharp dissection and LigaSure energy coagulation. No bleeding was encountered. Due to the inflammatory process, I went ahead and dissected the mass as close as I could to the cecum and once it was in the mesoappendix, and this mass was isolated I went ahead and fired a GI stapler all throughout the base of the inflammatory process including the mesoappendix. Once the be were removed, no bleeding was encountered. The area was then irrigated with irrigation solution, it Electronically Signed By: AJIT RAGLAND MD 06/16/24 1119 PATIENT NAME: DILLON ESCALANTE OPERATIVE REPORT DATE OF : 58 REPORT #: [id number] PHYSICIAN: AJIT RAGLAND MD PCP: TRISTEN BREWER MD REPORT IS CONFIDENTIAL AND NOT TO BE RELEASED WITHOUT AUTHORIZATION [facility] [address] [place], [place] [address] Signed remained very dry. I then inspected the adjacent bowel for any potential injury. I did not see any and a 12 mm trocar was then removed and the fascia was closed with a fascia suture. The 5 mm trocar was then removed under direct visualization and the Michelle trocar incision was closed with several interrupted 2-0 Vicryl sutures. The skin wound was then irrigated with hydrogen peroxide and the skin was closed with be. Sterile dressings were applied and the patient was then taken to recovery room in good and stable condition. FINDINGS: An inflammatory phlegmon in the right lower quadrant encompassing the mesoappendix as well was the appendix. No other pathology noted. MD HESHAM Maxwell/MODL /[id number] Copies: ~ Electronically Signed By: AJIT RAGLAND MD 06/16/24 1119 PATIENT NAME: DILLON ESCALANTE OPERATIVE REPORT DATE OF : 58 REPORT #: [id number] PHYSICIAN: AJIT RAGLAND MD PCP: TRISTEN BREWER MD REPORT IS CONFIDENTIAL AND NOT TO BE RELEASED WITHOUT AUTHORIZATION
--- NOTE | 2024-06-20 09:18 | PATH ---
[facility] [address] [place], [place] [address] Signed SPECIMEN(S): A APPENDIX SPECIMEN SOURCE: A. APPENDIX CLINICAL HISTORY: Appendicitis FINAL PATHOLOGIC DIAGNOSIS: Designated "appendix": - Mature adipose tissue, see comment COMMENT: The specimen label and surgical pathology requisition designate the specimen as "appendix", however no appendiceal tissue is present in the specimen. Correlation with all clinical and operative information is needed. [facility] MICROSCOPIC EXAMINATION: Histologic sections of all submitted blocks are examined by light microscopy. These findings, together with the gross examination, support the pathologic diagnosis. GROSS DESCRIPTION: The specimen, labeled and designated "Kleber, V, " and designated on the requisition "appendix," is received in formalin and consists of a portion of stapled adipose tissue that is 5.2 x 3.8 x 0.9 cm. The external surface is pale pink and focally congested. Two linear defects are present measuring 1.6 and 2.2 cm in greatest dimension. These defects are arbitrarily inked red and green. The staple line is inked blue. The specimen is serially sectioned perpendicular to the long axis revealing a yellow-fabian greasy adipose tissue. No appendix is grossly identified. No lumen is grossly identified. The specimen is entirely submitted in (A1-A4). Only the staple line remains within the container. FB (under the direct supervision of a pathologist) The Gross Description was prepared using a voice recognition system. The report was reviewed for accuracy; however, sound-alike word errors, addition and/or deletions may occur. If there is any PATIENT NAME: DILLON ESCALANTE PATHOLOGY DATE OF : 58 REPORT #: [id number] PHYSICIAN: TRAV BYRD PCP: TRISTEN BREWER MD REPORT IS CONFIDENTIAL AND NOT TO BE RELEASED WITHOUT AUTHORIZATION [facility] [address] [facility] [place] [place] [address] Signed question about this report, please contact Client Services. ADDITIONAL NOTES: Immunohistochemical and/or in situ hybridization studies if performed in this case included appropriate positive controls that reacted as expected. This test was developed and its performance characteristics determined by [facility]. It has not been cleared or approved by the U.S. Food and Drug Administration. The FDA has determined that such clearance or approval is not necessary. This test is used for clinical purposes. It should not be regarded as investigational or for research. [facility] is certified under the Clinical Laboratory Improvement Amendments of 1988 (CLIA) as qualified to perform high complexity clinical laboratory testing. PERFORMING LABORATORY: Technical component was performed by [facility], [address] [place] [address] (CLIA# [id number]). Professional interpretation was performed by [facility] - [facility], [address] [place] [address] (CLIA#: [id number]). Diagnostician: Kieran Oliveros MD Pathologist Electronically Signed 06/20/2024 Copies: ~ PATIENT NAME: DILLON ESCALANTE PATHOLOGY DATE OF : 58 REPORT #: [id number] PHYSICIAN: TRAV BYRD PCP: TRISTEN BREWER MD REPORT IS CONFIDENTIAL AND NOT TO BE RELEASED WITHOUT AUTHORIZATION
== END 2024-06-15 14:07 | disposition home or self-care (01) ==
LOC: ED 14:49 → MS 14:51
PROVIDERS: Emergency Medicine; ADMIT Colon & Rectal Surgery; ATTEND Colon & Rectal Surgery
PROC: 0DTJ4ZZ Resection of Appendix, Percutaneous Endoscopic Approach (ICD-10-PCS; principal; 2024-06-13)
DX: K35.80 Unspecified acute appendicitis (principal); I10 Essential (primary) hypertension; E66.9 Obesity, unspecified; Z68.34 Body mass index [BMI] 34.0-34.9, adult; F17.200 Nicotine dependence, unspecified, uncomplicated; Z79.899 Other long term (current) drug therapy
CPT/HCPCS: 00840; 36415; 74176; 80048; 80053; 81003; 83690; 83735; 84100; 85025; 93005; 93010; 96365; 96366; 96372; 96375; 96376; 99285-25; A9270; G0378; J0131; J0330; J0692; J0696; J1100; J1171; J1650; J1885; J2003; J2250; J2405; J2470; J2704; J3010; J3475; J3490; J7030; J7121

== ENCOUNTER 2024-07-01 12:02 | Emergency (ER) | payer OTHER ==
[~2024-07-01] VITALS: Ht 167.6 cm; Wt 97.4 kg
[~2024-07-01 12:02] MED LIST changes: +AMOX TR-K CLV1 EAC1 PO; +PERCOCET 5-3251 EACH PO; +ZESTRIL30 MG PO
--- OUTSIDE RECORDS SUMMARY | 2024-07-01 12:09 | XMS ---
PreManage Notification: DILLON ESCALANTE Security Rigger Events No recent Security Events currently on file CRITERIA MET - [facility] - 2 Visits in 30 Days CARE PROVIDERS There are no care providers on record at this time. Kyleigh has no Care Guidelines for this patient. [facility] MO[facility] NOTE: Visits indicate total known visits. ED/C VISIT TRACKING (12 MO.) 07/01/2024 12:[address] 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
[2024-07-01 12:54] LABS: BASOPHILS 0.4 % (0-2); EOSINOPHILS 1.7 % (0-6); HEMATOCRIT 42.6 % (35.0-50.0); HEMOGLOBIN 14.8 g/dL (12.0-18.0); LYMPHOCYTES 17.7 % (24-44); MCH 29.3 (27-36); MCHC 34.7 g/dl (30-36); MCV 84.6 fl (81-99); MONOCYTES 8.5 % (0-12); NEUTROPHILS 71.7 % (39-80); PLATELET COUNT 202 K/uL (140-440); RBC 5.04 M/ul (4.3-5.7)
[2024-07-01 13:11] LABS: ALBUMIN 3.6 g/dL (3.4-5.0); ALBUMIN/GLOBULIN RATIO 0.84 (1.1-2.4); ANION GAP 11.1 (7-21); BILIRUBIN, TOTAL 0.6 mg/dL (0.2-1.0); BUN/CREATININE RATIO 24.81 (6.0-28.6); CALCIUM 9.2 mg/dL (8.5-10.1); CREATININE, SERUM 1.33 mg/dL (0.70-1.30); POTASSIUM 4.1 mmol/L (3.5-5.1); PROTEIN, TOTAL 7.9 g/dL (6.4-8.2)
[2024-07-01] MEDS ORDERED: LEVOFLOXACIN500 MG PO (13:36)
[2024-07-01 13:47] VITALS: BP 117/69
== END 2024-07-01 13:45 | disposition home or self-care (01) ==
LOC: ED 12:02
PROVIDERS: Emergency Medicine
DX: T81.41XA Infection following a procedure, superficial incisional surgical site, initial encounter (principal); L02.211 Cutaneous abscess of abdominal wall; I10 Essential (primary) hypertension; F17.200 Nicotine dependence, unspecified, uncomplicated; Z79.899 Other long term (current) drug therapy
CPT/HCPCS: 36415; 74176; 80053; 85025; 99284-25